=== PATIENT | female | born 1975 | race Two or more races ===

== ENCOUNTER 2024-12-14 22:11 | Emergency (ER) | payer OTHER ==
[~2024-12-14] VITALS: Ht 139.7 cm; Wt 55.8 kg
[2024-12-14 23:56] LABS: BASOPHILS # (AUTO) 0.1 K/uL (0.0-0.2); BASOPHILS % (AUTO) 1.5 % (0.0-2.0); EOSINOPHILS # (AUTO) 0.4 K/uL (0.0-0.7); EOSINOPHILS % (AUTO) 4.3 % (0.0-6.0); HEMATOCRIT 40 % (33-45); HEMOGLOBIN 13.6 g/dL (11.5-14.8); LYMPHOCYTES # (AUTO) 2.7 K/uL (0.8-4.8); LYMPHOCYTES % (AUTO) 30.5 % (20.0-44.0); MEAN CORPUSCULAR HEMOGLOBIN 29 PG (26.0-33.0); MEAN CORPUSCULAR HGB CONC 34 g/dl (31.0-36.0); MEAN CORPUSCULAR VOLUME 86 fL (82-100); MONOCYTES # (AUTO) 0.6 K/uL (0.1-1.30); MONOCYTES % (AUTO) 6.5 % (2.0-12.0); NEUTROPHILS # (AUTO) 5.1 K/uL (1.8-8.9); NEUTROPHILS % (AUTO) 57.2 % (43.0-81.0); PLATELET COUNT (AUTO) 339 K/uL (150-450); RED BLOOD CELL COUNT(AUTO) 4.64 MIL/uL (4.0-5.2); WHITE BLOOD COUNT (AUTO) 8.9 K/uL (4.3-11.0)
[2024-12-15] MEDS: diphenhydrAMINE HCL 50 MG/ML VIAL IV ONE
[2024-12-15] MEDS: SUMATRIPTAN SUCCINATE 6 MG/0.5 ML VIAL SQ ONE
[2024-12-15] MEDS: MECLIZINE HCL 12.5 MG TABLET PO ONE
[2024-12-15 00:03] LABS: CALCIUM, SERUM 9.2 mg/dL (8.5-10.1); CARBON DIOXIDE 28 mmol/L (21-32); CHLORIDE 107 mmol/L (98-107); CREATININE 0.7 mg/dL (0.6-1.3); GLUCOSE 107 mg/dL (74-106); SODIUM SERUM 142 mmol/L (136-145); UREA NITROGEN, BLOOD 15 mg/dL (7-18)
[2024-12-15] MEDS ORDERED: diphenhydrAMINE HCL 50 MG/ML VIAL ONE (00:05)
[2024-12-15] MEDS ORDERED: SUMATRIPTAN SUCCINATE 6 MG/0.5 ML VIAL SQ ONE (00:06)
[2024-12-15] MEDS ORDERED: MECLIZINE HCL 25 MG TABLET ONE (00:06)
[2024-12-15 00:09] LABS: INR 0.98 (0.91-1.10); PARTIAL THROMBOPLASTIN TIME 26.6 SEC (24.3-34.3); PROTHROMBIN TIME 10.4 SECS (9.2-11.1)
[2024-12-15] MEDS ORDERED: SUMA50TA PO (00:48)
[2024-12-15 01:27] VITALS: BP 135/72; TEMP 98.1; O2SAT 97
== END 2024-12-15 01:28 | disposition home or self-care (01) ==
LOC: ER 22:22
DX: R51.9 Headache, unspecified (principal); R07.89 Other chest pain; M79.10 Myalgia, unspecified site; R20.0 Anesthesia of skin
CPT/HCPCS: 36415; 70450-TC; 71045-TC; 80048-TC; 84484-TC; 85025-TC; 85730-TC; J1200; J3030; J8597

== ENCOUNTER 2025-07-03 17:51 | Emergency (ER) | payer MEDICAID, OTHER ==
[~2025-07-03] VITALS: Ht 139.7 cm; Wt 59.4 kg
[~2025-07-03 17:51] MED LIST: SUMA50TA PO
[2025-07-03 18:56] LABS: PLATELET COUNT (AUTO) 364 K/uL (150-450); RED BLOOD CELL COUNT(AUTO) 4.72 MIL/uL (4.0-5.2); RED CELL DISTRIBUTION WIDTH 13.7 % (11.5-15.0); WHITE BLOOD COUNT (AUTO) 8.2 K/uL (4.3-11.0)
[2025-07-03 19:07] LABS: CALCIUM, SERUM 9.4 mg/dL (8.5-10.1); CREATININE 0.8 mg/dL (0.6-1.3); SODIUM SERUM 144.0 mmol/L (136-145); UREA NITROGEN, BLOOD 12.0 mg/dL (7-18)
[2025-07-03] MEDS ORDERED: MECLIZINE HCL 25 MG TABLET ONE (19:20)
[2025-07-03] MEDS: IV NS 0.9% 1,000 ML BAG IV ONE (19:29)
[2025-07-03] MEDS: MECLIZINE HCL 25 MG TABLET PO ONE (19:29)
[2025-07-03] MEDS ORDERED: CIPR7.5D9 EACH EAR (19:56)
[2025-07-03] MEDS ORDERED: MECL-159 PO (19:56)
[2025-07-03 20:16] VITALS: BP 118/65; TEMP 98; O2SAT 98
== END 2025-07-03 20:17 | disposition home or self-care (01) ==
LOC: ER 17:59
DX: R42 Dizziness and giddiness (principal); H92.01 Otalgia, right ear; R51.9 Headache, unspecified
CPT/HCPCS: 99283; 96360; 85025; 80048; 36415; J8597; J7030

== ENCOUNTER 2025-09-09 11:15 | Emergency (ER) | payer MEDICAID ==
[~2025-09-09] VITALS: Ht 139.7 cm; Wt 59.4 kg
[~2025-09-09 11:15] MED LIST changes: +CIPR7.5D9 EACH EAR; +MECL-159 PO
[2025-09-09 11:20] VITALS: BP 128/77; TEMP 98.6
[2025-09-09 11:46] VITALS: O2SAT 98
== END 2025-09-09 11:46 | disposition home or self-care (01) ==
LOC: ER 11:22
DX: B34.9 Viral infection, unspecified (principal)